=== PATIENT | male | born 1985 | race Caucasian/White ===

== ENCOUNTER 2016-11-19 09:18 | Day surgery (SDC) | payer MEDICARE, BC, MEDICAID ==
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
[~2016-11-19 09:18] MED LIST: Lactated Ringers 1,000 ML IV SCH
[2016-11-19] MEDS ORDERED: Propofol 200 MG/20 ML SDV ONE ×3 (09:22→10:07)
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
[2016-11-19] MEDS ORDERED: fentaNYL 100 MCG/2 ML SDV ONE (09:46)
[2016-11-19] MEDS ORDERED: Midazolam 1 MG/ML 2 ML SDV ONE (09:46)
--- NOTE | 2016-11-19 10:29 | PCM.OPNOTE ---
- General Post-Op/Procedure Note Date of Surgery/Procedure: 11/19/16 Operative Procedure(s): Colonoscopy with cold rectal polypectomy Pre Op Diagnosis: Intermittent rectal bleeding. Family history of colon cancer. Post-Op Diagnosis: Rectal polyp Anesthesia Technique: MAC (ASA II) Primary Surgeon: Wilton Ellis Condition: Good Free Text/Narrative:: Dictation [id number]
[2016-11-19] MEDS ORDERED: Lactated Ringers 1,000 ML IV SCH (10:30)
--- NOTE | 2016-11-19 10:33 | PCM.POSTAN ---
POST ANESTHESIA ASSESSMENT - MENTAL STATUS Mental Status: alert, oriented - RESPIRATORY Respiratory Status: respiratory rate WNL, airway patent, O2 saturation stable - CARDIOVASCULAR CV Status: pulse rate WNL, blood pressure stable - GASTROINTESTINAL GI Status: no symptoms - POST OP HYDRATION Hydration Status: adequate & stable - OBSERVATIONS Free Text/Narrative:: no anesthesia problems
[2016-11-19 10:49] VITALS: BP 123/74
--- NOTE | 2016-11-20 06:19 | OR ---
SURGEON: Wilton Ellis M.D. DATE OF PROCEDURE: 11/19/2016 TEST PERFORMED: Colonoscopy with cold rectal polypectomy. ANASTHESIA: MAC. ASA CLASSIFICATION: II. PREOPERATIVE DIAGNOSES: 1. Recurrent rectal bleeding. 2. Family history of colon cancer. POSTOPERATIVE DIAGNOSIS: Small rectal polyp. DESCRIPTION OF PROCEDURE: The patient was taken to the endoscopy room and positioned on the endoscopy table in the left lateral decubitus position. Time-out was called for appropriate identification of the patient and procedure. Digital rectal examination did not reveal any masses. The colonoscope was inserted into the rectum and advanced without difficulty to the cecum, which was identified by internal landmarks and external pressure. The colonoscope was retroflexed in the cecum to visualize the ascending colon from below and then straightened and slowly withdrawn. The prep was excellent. Cecum, ascending colon, hepatic flexure, transverse colon, splenic flexure, descending colon, and sigmoid colon showed no tumors, polyps, diverticula, or angiodysplasia. There was no evidence of inflammatory bowel disease. Once the colonoscope was withdrawn to the rectum, a small polyp was encountered and removed with the cold biopsy forceps. The colonoscope was then retroflexed to visualize the anal orifice from above. No tumors or polyps were seen and there were no acute hemorrhoidal changes. The colonoscope was then straightened and slowly withdrawn. The patient tolerated the procedure well and was taken to the recovery room in a stable condition. DESTINI MACK /[id number]
== END 2016-11-19 11:08 | disposition home or self-care (01) ==
LOC: MW.SDS 09:18
PROVIDERS: ATTEND Surgery
PROC: 0DBP8ZZ Excision of Rectum, Via Natural or Artificial Opening Endoscopic (ICD-10-PCS; principal; 2016-11-19)
DX: D12.8 Benign neoplasm of rectum (principal); M19.90 Unspecified osteoarthritis, unspecified site; F17.210 Nicotine dependence, cigarettes, uncomplicated; J45.909 Unspecified asthma, uncomplicated; G40.909 Epilepsy, unspecified, not intractable, without status epilepticus; Z88.8 Allergy status to other drugs, medicaments and biological substances; Z91.040 Latex allergy status; Z79.899 Other long term (current) drug therapy; Z98.890 Other specified postprocedural states
CPT/HCPCS: 45380; 88305; J2250; J3010; J7120; J2704

== ENCOUNTER → 2016-12-04 | Outpatient (CLI) | payer MEDICARE, BC, MEDICAID | LOC: MW.CHGS 08:00 | PROVIDERS: ATTEND Surgery | DX: D12.8 Benign neoplasm of rectum (principal); K62.5 Hemorrhage of anus and rectum | CPT/HCPCS: G0463 ==

== ENCOUNTER 2024-02-14 06:24 | Day surgery (SDC) | payer MEDICARE, BC ==
[2024-02-14] MEDS: Lactated Ringers 1,000 ML IV SCH (07:04)
[2024-02-14] MEDS ORDERED: propofoL 50 ML ONE (07:05)
[2024-02-14] MEDS ORDERED: Lactated Ringers 1,000 ML IV SCH (08:15)
[2024-02-14 08:36] VITALS: BP 100/60; PULSE 60
== END 2024-02-14 08:55 | disposition home or self-care (01) ==
LOC: MW.SDS 06:24
PROVIDERS: ATTEND Surgery
DX: K62.5 Hemorrhage of anus and rectum (principal); K64.9 Unspecified hemorrhoids; G40.909 Epilepsy, unspecified, not intractable, without status epilepticus; J44.9 Chronic obstructive pulmonary disease, unspecified; F17.220 Nicotine dependence, chewing tobacco, uncomplicated; Z86.010 Personal history of colon polyps; Z80.0 Family history of malignant neoplasm of digestive organs; Z88.8 Allergy status to other drugs, medicaments and biological substances; Z91.040 Latex allergy status; Z79.899 Other long term (current) drug therapy; Z79.890 Hormone replacement therapy
CPT/HCPCS: 45378; J2704; J7120